=== PATIENT | female | born 1935 | race Caucasian/White ===

== ENCOUNTER 2018-07-11 14:16 | Outpatient (CLI) | payer MEDICARE | END 2018-07-11 14:17 | disposition EMS.NT | LOC: EMS 14:16 | PROVIDERS: ATTEND Surgery | DX: R07.81 Pleurodynia (principal); V29.40XA Motorcycle driver injured in collision with unspecified motor vehicles in traffic accident, initial encounter; Y92.413 State road as the place of occurrence of the external cause ==